=== PATIENT | male | born 1950 | race Caucasian/White ===

== ENCOUNTER → 2016-11-06 | Outpatient (CLI) | payer OTHER ==
[~2016-11-06] MED LIST: AVINZA 30 MG PO; FLOMAX0.4 MG PO; NORCO 10/325 TA1 TAB PO; UROCIT K PO; VISTARIL PO
== END | disposition home or self-care (01) ==
LOC: CLAB 16:53
DX: N40.0 Benign prostatic hyperplasia without lower urinary tract symptoms (principal)
CPT/HCPCS: 36415; G0103